=== PATIENT | female | born 1995 | race Two or more races ===

== ENCOUNTER → 2017-07-18 | Outpatient (CLI) | payer OTHER | END | disposition home or self-care (01) | LOC: LAB 15:27 | PROVIDERS: ATTEND Obstetrics & Gynecology | DX: N76.0 Acute vaginitis (principal) | CPT/HCPCS: 87081 ==

== ENCOUNTER 2017-07-26 14:21 | Observation (INO) | payer OTHER ==
[2017-07-26] MEDS ORDERED: PREN-145 OR (15:05)
[2017-07-26] MEDS ORDERED: GLYB2.5T8 PO (15:10)
== END 2017-07-26 15:40 | disposition home or self-care (01) | DRG 781 ==
LOC: LDRP 14:21
PROVIDERS: ADMIT Obstetrics & Gynecology; ATTEND Obstetrics & Gynecology
DX: O26.893 Other specified pregnancy related conditions, third trimester (principal); O24.419 Gestational diabetes mellitus in pregnancy, unspecified control; N89.8 Other specified noninflammatory disorders of vagina; Z3A.36 36 weeks gestation of pregnancy
CPT/HCPCS: 59025; 81002; 82948; 82962; G0378

== ENCOUNTER 2017-07-27 16:40 | Inpatient (IN) | payer OTHER ==
[~2017-07-27] VITALS: Ht 165.1 cm; Wt 82.1 kg
[~2017-07-27 16:40] MED LIST: GLYB2.5T8 PO; PREN-145 OR
[2017-07-27] MEDS ORDERED: LACT. RINGERS/OXYTOCIN 20UNITS 1,000 ML IV SCH (16:54)
[2017-07-27] MEDS ORDERED: LACTATED RINGER'S 1,000 ML IV SCH (16:54)
[2017-07-27] MEDS ORDERED: PHISODERM TOP SOLN 240ML BTL TOP PRN (17:00)
[2017-07-27] MEDS ORDERED: DERMOPLAST 60ML BOTTLE TOP PRN (17:00)
[2017-07-27] MEDS ORDERED: ACCU-CHEK COMFORT CURVE STRIP VI ONE (17:00)
[2017-07-27] MEDS ORDERED: NALBUPHINE HCL 10 MG/1ml INJECTION IV PRN (17:00)
[2017-07-27] MEDS ORDERED: WITCH HAZEL-GLYCERIN PAD TOP PRN (17:00)
[2017-07-27] MEDS ORDERED: LIDOCAINE 2% (LOCAL ANESTH.) PF 5ml SDV ID ONE (17:00)
[2017-07-27] MEDS ORDERED: PENICILLIN G POT 5MIL/D5 50ML 50 ML IV ONE ×2 (17:00→17:45)
[2017-07-27] MEDS ORDERED: ACCU-CHEK COMFORT CURVE STRIP VI SCH (18:00)
[2017-07-27 18:20] LABS: Basophils # (auto) 0 uL; Basophils % (auto) 0.2 % (0.0-2.0); Eosinophils # (auto) 0.1 uL; Eosinophils % (auto) 1.3 % (0.0-7.0); Hematocrit 36.7 % (36.0-46.0); Hemoglobin 12.4 g/dL (12.2-16.2); Lymphocytes # (auto) 1.7 uL; Mean Corpuscular Hemoglobin 27.1 pg (28.0-32.0); Mean Corpuscular Hgb Conc. 33.8 g/dL (32.0-36.0); Mean Corpuscular Volume 80.1 fL (80.0-100.0); Monocytes # (auto) 0.7 uL; Monocytes % (auto) 9.8 % (0.0-12.0); Neutrophils # (auto) 5.1 uL; Neutrophils % (auto) 66.7 % (37.0-80.0); Nucleated Red Blood Cells % 0.1 %; Platelet Count (auto) 246 10^3/uL (140-450); Red Blood Cells 4.58 10^6/uL (4.0-5.20); Red Cell Distribution Width 15.6 % (11.8-14.3); White Blood Cell 7.6 10^3/uL (4.4-10.8)
[2017-07-27 18:26] LABS: Albumin 2.9 g/dL (3.4-5.0); BUN/Creatinine Ratio 19.1; Calcium 8.2 mg/dL (8.5-10.1); Potassium 3.8 mmol/L (3.5-5.1)
[2017-07-27 18:27] LABS: Alcohol, Urine < 3.0 mg/dL (0-5); Amphetamine Screen, Urine NEGATIVE (NEGATIVE); Barbiturate Scree,Urine NEGATIVE (NEGATIVE); Benzodiazephine Screen, Urine NEGATIVE (NEGATIVE); Cannabinoid Screen, Urine NEGATIVE (NEGATIVE); Cocaine Screen, Urine NEGATIVE (NEGATIVE); Opiate Scree,Urine NEGATIVE (NEGATIVE); Phencyclidine Screen, Urine NEGATIVE (NEGATIVE)
[2017-07-27 18:29] LABS: Bilirubin, Total 0.2 mg/dL (0.2-1.0); INR 0.85 (0.9-1.15); Partial Thromboplastin Time 27.8 sec (22.64-33.71); Prothrombin Time 9.3 sec (9.37-12.3); Total Protein 7.3 g/dL (6.4-8.2)
[2017-07-27 19:23] LABS: Urine Bacteria NONE SEEN /hpf (None Seen); Urine Blood Negative /uL (Negative); Urine Specific Gravity 1.009 (1.001-1.035); Urine WBC 2 /hpf (0 - 5)
[2017-07-27] MEDS ORDERED: ceFAZolin 1GM/50ML 50 ML IV ONE (19:50)
[2017-07-27] MEDS ORDERED: BETAMETHASONE ACET (6MG/ML) 5ML VIAL ONE (19:50)
[2017-07-27] MEDS ORDERED: BETAMETHASONE ACET (6MG/ML) 5ML VIAL IM ONE (20:00)
[2017-07-27] MEDS ORDERED: PENICILLIN G POTASSIUM 2,500,000 UNITS in D5W 5% 50 ML IV SCH (21:00)
[2017-07-28] MEDS ORDERED: PROMETHAZINE HCL 25 MG/ML 1ML ONE (03:08)
[2017-07-28] MEDS ORDERED: PROMETHAZINE HCL 25 MG/ML 1ML IM PRN (03:15)
[2017-07-28] MEDS: ceFAZolin 1GM/50ML 50 ML IV SCH ×2 (03:25→12:00)
[2017-07-28 05:06] LABS: RPR Non Reactive (Non Reactive)
[2017-07-28] MEDS ORDERED: ePHEDrine SULFATE 50 MG/ML AMP IV ONE (07:15)
[2017-07-28] MEDS ORDERED: NALOXONE HCL 0.4 MG/ML VIAL IV ONE (07:15)
[2017-07-28] MEDS ORDERED: fentaNYL W ROPIVACAINE 150 ML EPI SCH (07:15)
[2017-07-28] MEDS ORDERED: LIDOCAINE HCL 2 %PF INJ 10ML AMP IJ ONE (07:15)
[2017-07-28] MEDS ORDERED: fentaNYL CITRATE 100 MCG/2 ML VL IV ONE (07:15)
[2017-07-28] MEDS ORDERED: BETAMETHASONE ACET (6MG/ML) 5ML VIAL IM ONE (08:00)
[2017-07-28] MEDS ORDERED: LACT. RINGERS/OXYTOCIN 20UNITS 1,000 ML IV SCH (09:08)
[2017-07-28] MEDS ORDERED: TERBUTALINE SULFATE 1 MG/ML 1ML VIAL SC ONE (09:15)
[2017-07-28] MEDS: DOCUSATE CALCIUM 240 MG CAP PO SCH (13:30)
[2017-07-28 15:00] VITALS: BP 104/58
[2017-07-28] MEDS: IBUPROFEN 600 MG TAB PO PRN (16:23)
[2017-07-28 19:24] VITALS: BP 108/56
[2017-07-28 23:15] VITALS: BP 104/55
[2017-07-29] MEDS ORDERED: TETANUS-DIPTH-ACEL PERTUSSIS 0.5ML SYRG IM ONE (02:45)
[2017-07-29 02:57] VITALS: BP 102/55
[2017-07-29 06:49] VITALS: BP 97/55
[2017-07-29] MEDS: IBUPROFEN 600 MG TAB PO PRN (08:14)
[2017-07-29] MEDS: DOCUSATE CALCIUM 240 MG CAP PO SCH (10:00)
[2017-07-29 11:00] VITALS: BP 107/60
== END 2017-07-29 15:00 | disposition home or self-care (01) | DRG 775 ==
LOC: LDRP 16:40 → OBSVTOIN 16:40 → LDRP 17:06
PROVIDERS: ADMIT Specialist; ATTEND Specialist
PROC: 10D07Z6 Extraction of Products of Conception, Vacuum, Via Natural or Artificial Opening (ICD-10-PCS; principal; 2017-07-28)
PROC: 0W8NXZZ Division of Female Perineum, External Approach (ICD-10-PCS; 2017-07-28)
PROC: 3E0R3BZ Introduction of Anesthetic Agent into Spinal Canal, Percutaneous Approach (ICD-10-PCS; 2017-07-28)
PROC: 00HU33Z Insertion of Infusion Device into Spinal Canal, Percutaneous Approach (ICD-10-PCS; 2017-07-28)
DX: O60.14X0 Preterm labor third trimester with preterm delivery third trimester, not applicable or unspecified (principal); O24.429 Gestational diabetes mellitus in childbirth, unspecified control; O42.913 Preterm premature rupture of membranes, unspecified as to length of time between rupture and onset of labor, third trimester; O99.824 Streptococcus B carrier state complicating childbirth; Z3A.36 36 weeks gestation of pregnancy; Z37.0 Single live birth
CPT/HCPCS: 36415; 59025; 59409; 80053; 80307; 81001; 82948; 82962; 85025; 85610; 85730; 86592; 86850; 86900; 86901; 90715; 96365; 96366; 96372; 96374; 96375; J0690; J2540; J2590; J3010; J7060